=== PATIENT | male | born 1935 | race Caucasian/White ===

== ENCOUNTER 2021-01-18 14:23 | Emergency (ER) | payer MEDICARE ==
[~2021-01-18 14:23] MED LIST: Iopamidol 370 76% 100 ML VIAL ONE; Sodium Chloride 0.9% 1,000 ML BAG ONE
[2021-01-18 15:24] LABS: #Eosinphils 0.1 thou/uL (0.0-0.7); #Lymphocytes 0.6 thou/uL (1.20-3.40); #Monocytes 0.2 thou/uL (0.11-0.59); #Neutrophils 4.9 thou/uL (1.40-6.50); %Basophils 0.4 % (0.0-1.0); %Eosinophils 1.4 % (0.0-10.0); %Lymphocytes 9.7 % (21.0-51.0); %Monocytes 3.9 % (0.0-10.0); %Neutrophils 84.6 % (42.0-75.0); Hemoglobin 12.8 g/dL (14.0-18.0); Mean Corpuscular HGB CONC 34.4 g/dL (32.0-36.0); Mean Corpuscular Hemoglobin 30.8 pg (27.0-31.0); Mean Corpuscular Volume 89.5 fL (78.0-98.0); Mean Platelet Volume 6.7 fL (7.4-10.4); Platelet Count 162 thou/uL (130-400); RBC Distribution Width 11.4 % (11.5-14.5); Red Blood Cell (RBC) Count 4.15 mill/uL (4.70-6.10); White Blood Cell (WBC) Count 5.8 thou/uL (4.8-10.8)
[2021-01-18 15:33] LABS: INR-International Normal Ratio 0.9; PTT 31.5 sec (22.9-36.1); Prothrombin Time 12.7 sec (12.0-14.7)
[2021-01-18 15:44] LABS: ALT (SGPT) 22 U/L (8-55); AST (SGOT) 56 U/L (5-34); Alkaline Phosphatase 77 U/L (40-110); Anion Gap 19 mmol/L (10-20); BUN (Urea Nitrogen) 26 mg/dL (8.4-25.7); Bilirubin, Total 1.4 mg/dL (0.2-1.2); CK (CPK) 612 U/L (30-200); Calc. Creatinine Clearance 0 mL/min (70-130); Calcium 6.1 mg/dL (7.8-10.44); Carbon Dioxide 32 mmol/L (23-31); Chloride 89 mmol/L (98-107); Globulin 2.3 g/dL (2.4-3.5); Glucose 159 mg/dL (83-110); Lipase 230 U/L (8-78); Protein, Total 5.3 g/dL (5.8-8.1); Sodium 138 mmol/L (136-145)
[2021-01-18 16:01] LABS: CKMB 3.1 ng/mL (0-6.6)
[2021-01-18 16:14] LABS: Potassium 2.2 mmol/L (3.5-5.1)
--- NOTE | 2021-01-18 16:38 | CT ---
CT BRAIN WITHOUT CONTRAST: HISTORY:Fall, paresthesias in the bilateral upper extremities COMPARISON:12/24/2019 FINDINGS: There are foci of decreased attenuation in the periventricular white matter, consistent with chronic small vessel ischemic disease. Changes of cortical atrophy are again seen. No evidence of acute infarct, hemorrhage, midline shift or abnormal extra-axial fluid collections is seen. The ventricular size is stable and the basilar cisterns are patent. The bony calvarium is intact. Ectatic left intradural vertebral artery is again seen. The visualized paranasal sinuses are well aerated. IMPRESSION: No CT evidence of acute intracranial process.
[2021-01-18] MEDS ORDERED: Morphine 2 MG/ML VIAL ONE (16:39)
--- NOTE | 2021-01-18 16:39 | CT ---
Exam: CT cervical spine without contrast HISTORY: Trauma. Fall. Pain. Metastatic prostate cancer. COMPARISON: None FINDINGS: No craniocervical dissociation. Appropriate alignment of the lateral masses of C1 and C2. Intact odon toid process Appropriate alignment of the facets. Straightening of cervical lordosis may be due to patient position, muscle spasm or cervical collar. Soft tissue neck structures: No mass, lymphadenopathy or hematoma. No prevertebral soft tissue swelli ng. Upper mediastinum and lung apices: There is focal opacity in the left lung apex, incompletely evaluat ed. Correlate for infiltrate. Central spinal canal: There are varying degrees of central canal stenosis and foramina and the basis of degenerative change. Vertebral bodies: There is diffuse sclerosis involving extensive osseous structures. There is no evid ence of a cervical spine fracture. There is multilevel facet hypertrophy. There is evidence of metastases involving multiple ribs and thoracic vertebra as well as the mandible, scapula and clavicl es. IMPRESSION: 1. Extensive diffuse osseous metastases 2. No evidence of fracture 3. Focal opacity in the left lung apex. Correlate for pneumonia.
[2021-01-18] MEDS ORDERED: NS 0.9% w/ 20 MEQ KCL 1,000 ML ONE (16:40)
[2021-01-18] MEDS ORDERED: Potassium Chloride 20 MEQ TAB ONE (16:40)
--- NOTE | 2021-01-18 16:56 | CT ---
EXAM: CT of the chest with IV contrast CT of the abdomen and pelvis with IV contrast CT thoracic and lumbar spine HISTORY: Back pain after a fall 2 days ago. COMPARISON: CT chest, abdomen, and pelvis on 08/25/2020 FINDINGS: CT CHEST: Mediastinum: Heart is normal in size without focal cardiac abnormality. No hilar or mediastinal lymph adenopathy. No mediastinal hemorrhage. Vascular calcific lesions are seen in the coronary arteries. Vessels: Vascular catheter lesions in the thoracic aorta. Thoracic aorta is normal in caliber without evidence of an aortic injury. Lungs: Patchy parenchymal density left lung base is present likely related to passive atelectasis. At electasis is present posterior right lower lobe. Patchy parenchymal density in the posterior left upper lobe is present which may also be related to volume loss and thought less likely to be related to contusion. Pneumonitis left upper lobe is a possibility. Calcified granuloma right upper lobe is again seen. Pleural space: Small left pleural effusion which could be related to small amount of hemorrhage is no w seen. Osseous structures: Diffuse sclerotic osseous metastatic disease is present and similar to prior exam . There are nondisplaced fractures involving the posterolateral medial left 12th rib with 2 separate fractures involving the left 10th 11th ribs with more medial fractures demonstrating displac ement of fracture fragments with anterior displacement of fracture fragment. Fracture medial left 10th rib is mildly comminuted. No additional rib fracture is appreciated. Chest wall: Within normal limits. CT ABDOMEN/PELVIS: Liver: Within normal limits. Gallbladder: Gallbladder calculi are visualized, and there is mild distention of the gallbladder. Spleen: No findings to suggest splenic injury. Pancreas: Within normal limits. Adrenal glands: There is mild thickening of each adrenal gland. Kidneys: Minimal scarring anterior midportion left kidney. Kidneys otherwise have a normal CT appeara nce. Urinary bladder: Within normal limits. Vessels: Vascular calcifications in the abdominal aorta and iliac arteries. There are no findings to suggest an aortic injury. Pelvis: No focal mass or abnormality. Reproductive organs: Prostate gland is enlarged measuring 5.4 cm with prosthetic a lesions visualized . This does result in mild mass effect on the posterior inferior aspect of the urinary bladder. Peritoneum: Trace fluid or wall thickening involving the perineal reflection posterior to the left pa racolic gutter. No fluid collection or free intraperitoneal gas is seen. There is a oval-shaped low-attenuation area seen in each inguinal region more prominent on the right which was also seen on study of 06/23/2020 and likely attributable to prior hernia repair. Retroperitoneum: No lymphadenopathy. Bowel: Normal in caliber. No bowel wall thickening. Evidence of colonic diverticulosis. Osseous structures: Extensive and diffuse sclerotic metastatic lesions are seen. CT thoracic and lumbar spine: Diffuse sclerotic metastatic lesions are present. There are lucencies a nd irregularity involving the T12 vertebral body primarily along the superior endplate linear low attenuation area extending to the inferior endplate. This may represent nondisplaced pathological fra cture. This was also present on the prior exam. No additional fracture is seen involving the thoracic or lumbar spine. Trace grade 1 anterolisthesis of L4 and L5 is present. IMPRESSION: 1. Lower left-sided rib fractures involving the left 10th through 12th ribs with 2 separate fractures involving the left posterior 10th and 11th ribs with medial fracture fragments demonstrating displacement. 2. Small left pleural effusion/hemothorax with was thought to be passive atelectasis. 3. Minimal patchy densities posterior aspect left upper lobe and right lung base also most likely rel ated to volume loss. Pneumonitis left upper lobe would be difficult to entirely exclude. 4. No acute findings in the abdomen or pelvis. 5. Extensive and diffuse osseous sclerotic metastatic disease with probable pathological fracture inv olving the T12 vertebral body. This is unchanged compared to prior exam. 6. Cholelithiasis. 7. Colonic diverticulosis.
[2021-01-18] MEDS ORDERED: Dexamethasone 10 MG/ML VIAL ONE (17:23)
[2021-01-18] MEDS ORDERED: Sodium Chloride 0.9% 250 ML 250 ML ONE (17:23)
[2021-01-18] MEDS ORDERED: Azithromycin 500 MG VIAL ONE (17:23)
[2021-01-18] MEDS ORDERED: cefTRIAXone\\ROCEPHIN 1 GM VIAL ONE (17:24)
[2021-01-18] MEDS ORDERED: Aspirin Chewable 81 MG TAB ONE (17:24)
[2021-01-18 17:27] LABS: Bilirubin Negative (Negative); Blood, Urine Trace (Negative); Glucose, Urine (Dipstick) Negative (Negative); Ketone, Urine 15 mg/dL (Negative); Leukocyte Negative (Negative); Nitrite Negative (Negative); Protein, Urine (Dipstick) Trace mg/dL (Neg-Trace)
[2021-01-18 17:28] LABS: Clarity Hazy (Clear)
[2021-01-18 17:29] LABS: Specific Gravity, Urine 1.032 (1.002-1.036)
[2021-01-18 17:37] LABS: Bacteria/HPF 1+ HPF (None Seen); RBC/HPF 0-3 HPF (0-3); Squamous Epithelial 0-3 HPF (0-3); WBC/HPF 0-3 HPF (0-3)
[2021-01-18 18:14] LABS: SARS-CoV-2 NAA Rapid Test DETECTED (NotDetected)
== END 2021-01-18 19:27 | disposition short-term general hospital (02) ==
LOC: MADERS 14:23
DX: S14.129A Central cord syndrome at unspecified level of cervical spinal cord, initial encounter (principal); K85.90 Acute pancreatitis without necrosis or infection, unspecified; E87.6 Hypokalemia; R79.0 Abnormal level of blood mineral; J44.9 Chronic obstructive pulmonary disease, unspecified; M19.90 Unspecified osteoarthritis, unspecified site; I10 Essential (primary) hypertension; W18.30XA Fall on same level, unspecified, initial encounter
CPT/HCPCS: 0240U; 36415; 70450; 71260; 72125; 74177; 80053; 81003; 81015; 82550; 82553; 83605; 83690; 84443; 84484; 85025; 85610; 85730; 87040; 87086; 93005; 96365; 96375; J0456; J0696; J1100; J2270; J3480; J7050; Q9967

== ENCOUNTER 2021-09-04 14:29 | Emergency (ER) | payer MEDICARE | END 2021-09-04 16:25 | disposition home or self-care (01) | LOC: MADERS 14:29 | DX: S06.0X0A Concussion without loss of consciousness, initial encounter (principal); S51.011A Laceration without foreign body of right elbow, initial encounter; S00.03XA Contusion of scalp, initial encounter; I10 Essential (primary) hypertension; Z79.899 Other long term (current) drug therapy; W19.XXXA Unspecified fall, initial encounter | CPT/HCPCS: 70450; 72125 ==